=== PATIENT | female | born 1980 | race Caucasian/White ===

== ENCOUNTER → 2023-06-22 15:37 | Outpatient (CLI) | payer OTHER, SELFPAY ==
--- NOTE | ~2023-06-22 | XR_ITS ---
EXAMINATION: XR shoulder LT min 2V DATE: 06/22/2023 16:10 INDICATION: Unspecified osteoarthritis at the left shoulder with pain and limited range of motion TECHNIQUE: AP internally and externally rotated, AP oblique externally rotated and transscapular Y vi ews of the left shoulder were obtained. COMPARISON: None FINDINGS: Normal alignment. No fracture. Glenohumeral joint is normal. Acromioclavicular joint is normal. Soft tissues are unremarkable. Visualized portions of the left lung are clear. IMPRESSION: Negative left shoulder radiographs. Reviewed, dictated and finalized at location A.
== END ==
PROVIDERS: PCP Physical Medicine & Rehabilitation; Visit Provider Physical Medicine & Rehabilitation
DX: M19.012 Primary osteoarthritis, left shoulder (principal)
CPT/HCPCS: 73030

== ENCOUNTER 2023-07-21 14:15 | Observation (INO) | payer OTHER, SELFPAY ==
[2023-07-21] VITALS (11 sets, daily range): BP systolic 120–137; BP diastolic 75–103; PULSE 68–114; RESP 16–20; TEMP 36.6–36.8; O2SAT 94–100; BMI 36.8
--- NOTE | ~2023-07-21 | CT_ITS ---
EXAMINATION: CT abdomen pelvis wo con DATE: 07/21/2023 16:18 INDICATION: Right lower quadrant abdominal pain. Flank pain. TECHNIQUE: Computed tomography (CT) of the abdomen and pelvis was performed without intravenous contr ast. Iterative reconstruction technique was employed. The dose-length product was 1309.14 mGy-cm. COMPARISON: None FINDINGS: Lung bases are clear. Heart size is normal. No pericardial or pleural effusion. Gallbladder is not vi sualized and likely surgically absent. Liver, spleen, pancreas, bilateral adrenal glands and left kid ji are normal. There is moderate right hydronephrosis with perinephric stranding. There is a subtle tiny density at the transition point suspicious for an obstructing stone, either tiny or of relativel y low density no other evident urolithiasis in either kidney. Bladder is normal. The uterus is not id entified and has likely been surgically resected. There is some high attenuation material stranding o n either side of the expected location of the urethra, unclear with represent stones within urethral diverticulum or potentially injected material for treatment of incontinence. Bowels including the candy endix are normal. No free intraperitoneal gas or fluid. No pathologically enlarged abdominal or pelvi c lymphadenopathy. Very small fat-containing umbilical hernia. Mild lumbar levocurvature with mild sp ondylosis. IMPRESSION: 1. Moderate right hydronephrosis with tiny density at the transition point at the ureter pelvic junct ion which could represent either a tiny or low-density stone. Recommend follow-up to resolution and i f hydronephrosis persists consider further evaluation with either retrograde pyelogram or CT urogram for further evaluation. Reviewed, dictated and finalized at location A. IMPRESSION: 1. Moderate right hydronephrosis with tiny density at the transition point at t he ureter pelvic junction which could represent either a tiny or low-density st one. Recommend follow-up to resolution and if hydronephrosis persists consider further evaluation with either retrograde pyelogram or CT urogram for further e valuation.
--- NOTE | ~2023-07-21 | CT_ITS ---
EXAMINATION: CT abdomen pelvis w con INDICATION: Right UPJ obstruction, right flank pain TECHNIQUE: Computed tomographic images of the abdomen and pelvis were obtained after the administrati on of 100 cc of Omnipaque 350 intravenous contrast. The dose-length product (DLP) was 1741.56 mGy-cm. Automated exposure control and iterative reconstruction technique were employed. COMPARISON: Noncontrast CT from earlier today FINDINGS: The lung bases are clear. The heart size is normal. The liver, spleen, pancreas, and adrena l glands are normal. Changes of cholecystectomy are noted. There is stable moderate right hydronephro sis with perinephric stranding on the right. There is a 3 mm stone at the right ureteropelvic junctio n. The left kidney is unremarkable. No pathologically enlarged abdominal or pelvic lymph nodes are id entified. No free intraperitoneal gas or evidence of bowel obstruction. Again noted is high attenuati on material adjacent to the urethra with differential as previously described. There is mild lumbar s pondylosis. IMPRESSION: 1. 3 mm stone at the right ureteropelvic junction causing moderate right hydronephrosis. Reviewed, dictated and finalized at location F. IMPRESSION: 1. 3 mm stone at the right ureteropelvic junction causing moderate right hydron ephrosis.
--- NOTE | ~2023-07-21 | XR_ITS ---
EXAMINATION: XR abdomen/kub 1V INDICATION: Right flank pain TECHNIQUE: Supine views of the abdomen were obtained on 2 radiographs. COMPARISON: CT from today FINDINGS: No urolithiasis is identified. The bowel gas pattern is normal. The visualized osseous stru ctures are unremarkable. IMPRESSION: 1. No visible urolithiasis. Reviewed, dictated and finalized at location F. IMPRESSION: 1. No visible urolithiasis.
[2023-07-21 15:07] LABS: Basophils Absolute Auto 0.1 K/mm3 (0.0-0.1); Basophils Percent Auto 0.4 % (0.2-1.2); Eosinophils Absolute Auto 0.1 K/mm3 (0-0.3); Eosinophils Percent Auto 0.4 % (0-4.4); Hematocrit 41.2 % (37.0-47.0); Hemoglobin 13.6 g/dL (12.0-15.0); Immature Granulocyte Absolute 0.06 K/mm3 (0.00-0.031); Immature Granulocyte Percent A 0.4 % (0-0.5); Lymphocytes Absolute Auto 1.41 K/mm3 (0.9-3.2); Lymphocytes Percent Auto 10.5 % (18.3-44.2); Mean Corpuscular Hemoglobin 32.3 pg (26-34); Mean Corpuscular Volume 97.9 fl (80-100); Monocytes Absolute Auto 0.8 K/mm3 (0.1-0.6); Monocytes Percent Auto 5.7 % (2.6-8.5); Neutrophils Absolute Auto 11.1 K/mm3 (1.3-6.7); Neutrophils Percent Auto 82.6 % (45.5-73.1); Platelet Count Result 345 k/mm3 (150-375); Red Blood Count 4.21 M/mm3 (4.2-5.4); Red Cell Distribution Width 12.6 % (11.5-14.5); White Blood Count 13.4 K/mm3 (4.5-10.0)
[2023-07-21 15:08] LABS: Alanine Aminotransferase 20 U/L (6-35); Albumin Level 4.4 g/dL (3.5-5.1); Alkaline Phosphatase 86 U/L (38-126); Anion Gap 9 mmol/L (8-16); Aspartate Amino Transferase 22 U/L (14-36); Bilirubin,Total 0.7 mg/dL (0.2-1.3); Blood Urea Nitrogen 11 mg/dL (7-17); Calcium 9.7 mg/dL (8.4-10.2); Carbon Dioxide 20 mmol/L (22-30); Chloride 106 mmol/L (98-107); Estimated CRCL calculation 110 ml/min; Estimated Glomerular Filt Rate > 60; Glucose 98 mg/dL (65-110); Lipase 57 U/L (23-300); Sodium 135 mmol/L (137-145)
[2023-07-21 15:49] LABS: Appearance Urine Turbid (Clear); Bacteria Urine None Seen /hpf; Bilirubin Urine Negative (Negative); Blood Urine Negative (Negative); Color Urine Yellow (Yellow); Glucose Urine UA Negative (Negative); Ketones Urine Trace mg/dL (Negative); Leukocyte Esterase Ur Negative LEU/UL (Negative); Nitrate Urine Negative (Negative); Non Pathogenic Casts 0-2; Protein Urine Negative (Negative); Specific Grav Ur 1.016 (1.001-1.035); Squamous Epithelial Cell Urine Few /hpf (Few); WBC Urine 0-5 /hpf; pH Urine 8.5 (5.0-9.0)
[2023-07-21 15:56] LABS: Add Urine Microscopic? YES
[2023-07-21] MEDS: KETOROLAC 30 MG/ML VIAL (*BKC) IV PUSH (15:58)
[2023-07-21] MEDS: SODIUM CHLORIDE 0.9% IV 1,000 ML 999 ML IV CONT (15:59)
[2023-07-21] MEDS: HYDROcodone/acetaminophen (*CRX) 5-325 MG TABLET 1 TAB PO (17:51)
--- NOTE | 2023-07-21 18:04 | ED.GENADULT ---
HPI - General Adult General Chief complaint: Abdominal Pain Stated complaint: abdominal pain Time Seen by Provider: 07/21/23 15:25 Related Data Allergies Allergy/AdvReac Type Severity Reaction Status Date / Time No Known Allergies Allergy Verified 07/21/23 14:16 Course Course Emergency Course: Discharge was anticipated the patient was have recurring of pain. She was given IV morphine and developed a rash so she received Benadryl. Patient still having discomfort. Discussed case with urology, Dr. Connolly, recommends performing CT urogram and if contrast does not moving past the area identified is possible stone patient may need to be admitted for observation/pain control and potential stent. After imaging performed he was recontacted and the hospitalist has accepted the patient as well. Vital Signs Vital signs: Vital Signs Temperature 98.3 F 07/21/23 14:37 Pulse Rate 102 H 07/21/23 14:37 Respiratory Rate 16 07/21/23 14:37 Blood Pressure 122/97 H 07/21/23 14:37 Pulse Oximetry 100 07/21/23 14:37 Oxygen Delivery Room Air 07/21/23 14:37 Temperature 98.3 F 07/21/23 14:37 Pulse Rate 82 07/21/23 18:31 Respiratory Rate 16 07/21/23 18:31 Blood Pressure 137/95 H 07/21/23 18:31 Pulse Oximetry 98 07/21/23 18:52 Oxygen Delivery Room Air 07/21/23 14:37 Medical Decision Making Vital Signs Vital Signs: Vital Signs Temperature 98.3 F 07/21/23 14:37 Pulse Rate 102 H 07/21/23 14:37 Respiratory Rate 16 07/21/23 14:37 Blood Pressure 122/97 H 07/21/23 14:37 Pulse Oximetry 100 07/21/23 14:37 Oxygen Delivery Room Air 07/21/23 14:37 Temperature 98.3 F 07/21/23 14:37 Pulse Rate 82 07/21/23 18:31 Respiratory Rate 16 07/21/23 18:31 Blood Pressure 137/95 H 07/21/23 18:31 Pulse Oximetry 98 07/21/23 18:52 Oxygen Delivery Room Air 07/21/23 14:37 Lab Data 07/21/23 14:41 07/21/23 14:41 Labs: Lab Results 07/21/23 07/21/23 Range/Units 14:41 15:36 WBC 13.4 H (4.5-10.0) K/mm3 RBC 4.21 (4.2-5.4) M/mm3 Hgb 13.6 (12.0-15.0) g/dL Hct 41.2 (37.0-47.0) % MCV 97.9 (80-100) fl MCH 32.3 (26-34) pg MCHC 33.0 (32-36) g/dl RDW 12.6 (11.5-14.5) % Plt Count 345 (150-375) k/mm3 MPV 10.0 (7.4-10.4) fl Immature Gran % (Auto) 0.4 (0-0.5) % Neut % (Auto) 82.6 H (45.5-73.1) % Lymph % (Auto) 10.5 L (18.3-44.2) % [place] % (Auto) 5.7 (2.6-8.5) % Eos % (Auto) 0.4 (0-4.4) % Baso % (Auto) 0.4 (0.2-1.2) % Lymph # (Auto) 1.41 (0.9-3.2) K/mm3 [place] # (Auto) 0.8 H (0.1-0.6) K/mm3 Eos # (Auto) 0.1 (0-0.3) K/mm3 Baso # (Auto) 0.1 (0.0-0.1) K/mm3 Abs Immat Gran (auto) 0.06 H (0.00-0.031) K/mm3 Absolute Neuts (auto) 11.1 H (1.3-6.7) K/mm3 Absolute Nucleated RBC 0.0 (0.0-0.012) K/mm3 Nucleated RBC % 0.0 (0.0-0.2) % Sodium 135 L (137-145) mmol/L Potassium 4.0 (3.4-5.0) mmol/L Chloride 106 (98-107) mmol/L Carbon Dioxide 20 L (22-30) mmol/L Anion Gap 9 (8-16) mmol/L BUN 11 (7-17) mg/dL Creatinine 0.70 (0.7-1.0) mg/dL Estim Creat Clear Calc 110 ml/min Estimated GFR > 60 (59 - ) Glucose 98 (65-110) mg/dL Calcium 9.7 (8.4-10.2) mg/dL Total Bilirubin 0.7 (0.2-1.3) mg/dL AST 22 (14-36) U/L ALT 20 (6-35) U/L Alkaline Phosphatase 86 (38-126) U/L Total Protein 8.0 (6.3-8.2) g/dL Albumin 4.4 (3.5-5.1) g/dL Lipase 57 (23-300) U/L Urine Color Yellow (Yellow) Urine Appearance Turbid H (Clear) Urine pH 8.5 (5.0-9.0) Ur Specific [place] 1.016 (1.001-1.035) Urine Protein Negative (Negative) mg/dL Urine Glucose (UA) Negative (Negative) mg/dL Urine Ketones Trace H (Negative) mg/dL Ur Blood (Man) Negative (Negative) Urine Nitrate Negative (Negative) Urine Bilirubin Negative (Negative) Urine Urobilinogen 1.0 (<2.0) mg/dL Leukocyte Esterase Rfl Negative
[2023-07-21] MEDS: MORPHINE SULFATE (*CRX) 4 MG/ML INJ IV PUSH (18:41)
--- NOTE | 2023-07-21 18:48 | PC.NURSE ---
pt reports her pain was not improving and reports she now has a rash on her neck. Meds given for pain ERP notified of rash
[2023-07-21] MEDS: diphenhydrAMINE HCl INJ 50 MG/ML VIAL 25 MG IV PUSH (19:00)
[2023-07-21] MEDS: ONDANSETRON INJ 4 MG/2 ML VIAL IV PUSH (23:48)
[2023-07-21] MEDS: fentaNYL CITRATE INJ (*CRX) 100 MCG/2 ML VIAL 50 MCG IV PUSH (23:48)
[2023-07-21] MEDS: SODIUM CHLORIDE 0.9% IV 1,000 ML 125 ML IV CONT (23:49)
--- NOTE | 2023-07-22 00:33 | ADMGEN ---
This patient, Jennyfer Stratton, was admitted to [facility] Surg Room 321-01. Patient/family oriented to hospital policies and general routines including ID bracelet, bed and alarms, visiting hours, pain management, procedures, bathroom and other care routines, personal items, smoking policy, room service/diet, and visiting hours. Information on how to activate the Rapid Response Team has been discussed. Patient/Family are encouraged to report perceived risks to care and to ask questions if they do not understand what they are told or what they should do.
--- NOTE | 2023-07-22 04:12 | PM.IMHP ---
H&P: HPI History of Present Illness Date/Time: 07/22/23 04:12 Chief Complaint: Right flank pain Narrative: 43-year-old female with a past medical history of kidney stones, chronic pain, chronic constipation, migraines and long haul COVID who presented to the ER with sudden onset right-sided abdominal pain/flank pain. Patient reports that a few hours prior to coming to the ER she developed a dull aching right flank pain. Soon followed by a burning right lower quadrant abdominal pain. She reported that she reports that the or abdominal pain was a sharp and stabbing sensation. She does have a history of kidney stones but these symptoms were different than the symptoms she had in March with her 1st kidney stone. She passed her 1st kidney stone before coming to the ER at that time. She has not been having any dysuria or hematuria. She reports that she only occasionally drinks a glass of tea. She does not drink enough water on a daily basis. She does not drink soda. She is obese but reports that her weight is been relatively stable she may have gained a couple lb. However weight overall is lower than it was several years ago. She was suspected to have sleep apnea many years ago but she reports that she rarely snores now that she has lost weight. She has never had a sleep study. She denies any fevers or chills. She has had decreased appetite for couple of days but denies any vomiting. She has had some mild nausea for 2 days. She reports that she feels like her abdomen is distended. She reports chronic fatigue due to her POTS. Initial CT in the ER demonstrated moderate right hydronephrosis with tiny density the transition point of the UPJ which could represent tiny stone or low density stone. Recommended follow-up suggested. Repeat CT with pyelogram demonstrated 3 mm stone at the right UPJ junction causing right moderate hydronephrosis. Patient developed a rash in the ER after 1 dose of morphine. The rash was localized to her neck. Patient was subsequently admitted for pain control with fentanyl. Urology is consulted. Review of Systems Review of Systems: 12 systems were reviewed with pertinent positives and negatives per HPI. Except as documented in the HPI, all other systems were reviewed and are negative. [facility] Past Medical History Medical History (Updated 07/22/23 @ 04:23 by Zhanna Grossman DO) Anxiety Asthma Chronic back pain Neck and low back Chronic congestion of paranasal sinus Chronic constipation COVID-19 long hauler Pots Depression History of nephrolithiasis Menieres disease Migraine PTSD (post-traumatic stress disorder) Surgical History Surgical History (Updated 07/22/23 @ 07:47 by Zhanna Grossman DO) History of dilation and curettage History of hysterectomy (07/2016) Due to uterine infection caused by her D and C. 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 She has 2 adult children who are out on her own. She is . She drinks alcohol once every month or so. Code status: Full code Surrogate decision maker: Smoking status: Never smoker Alcohol intake: current Substance use: never Lack of Transportation: No Lack of Food: Never True Current Housing: I Have Housing Concerned About Future Housing: No Difficulty Paying Gas/Electric Bills: No Difficulty Paying for Meds: No Currently Unemployed: No Education: Associate Degree Difficulty w/ Childcare or Family Care: No Spiritual care concerns: No Meds Home Medications and Allergies Home Medications Medication Instructions Recorded C
[2023-07-22 06:00] VITALS: BP 125/78; PULSE 88; RESP 20; TEMP 36.2; O2SAT 100
[2023-07-22 06:59] LABS: Basophils Percent Auto 0.4 % (0.2-1.2); Eosinophils Absolute Auto 0.2 K/mm3 (0-0.3); Eosinophils Percent Auto 1.6 % (0-4.4); Hematocrit 36.6 % (37.0-47.0); Hemoglobin 11.7 g/dL (12.0-15.0); Immature Granulocyte Absolute 0.03 K/mm3 (0.00-0.031); Immature Granulocyte Percent A 0.3 % (0-0.5); Lymphocytes Absolute Auto 2.25 K/mm3 (0.9-3.2); Lymphocytes Percent Auto 23.7 % (18.3-44.2); Mean Corpuscular Hemoglobin 32.2 pg (26-34); Mean Corpuscular Volume 100.8 fl (80-100); Monocytes Absolute Auto 0.7 K/mm3 (0.1-0.6); Monocytes Percent Auto 7.8 % (2.6-8.5); Neutrophils Absolute Auto 6.3 K/mm3 (1.3-6.7); Neutrophils Percent Auto 66.2 % (45.5-73.1); Platelet Count Result 268 k/mm3 (150-375); Red Blood Count 3.63 M/mm3 (4.2-5.4); Red Cell Distribution Width 12.7 % (11.5-14.5); White Blood Count 9.5 K/mm3 (4.5-10.0)
[2023-07-22 07:15] LABS: Anion Gap 4 mmol/L (8-16); Blood Urea Nitrogen 8 mg/dL (7-17); Calcium 8.7 mg/dL (8.4-10.2); Carbon Dioxide 23 mmol/L (22-30); Chloride 110 mmol/L (98-107); Estimated CRCL calculation 129 ml/min; Estimated Glomerular Filt Rate > 60; Glucose 83 mg/dL (65-110); Potassium 3.3 mmol/L (3.4-5.0); Sodium 137 mmol/L (137-145)
[2023-07-22] MEDS: SODIUM CHLORIDE 0.9% IV 1,000 ML 125 ML IV CONT (08:49)
[2023-07-22] MEDS: POTASSIUM CHLORIDE 20 MEQ ER TABLET 40 MEQ PO (09:14)
[2023-07-22] MEDS: TOPIRAMATE 100 MG TABLET PO (09:15)
[2023-07-22] MEDS: buPROPion HCL XL (24 HR) 150 MG TABCR PO (09:15)
[2023-07-22] MEDS: polyethylene glycoL 3350 17 GM POWD.PACK PO (09:16)
--- NOTE | 2023-07-22 09:54 | WPDURCON ---
Assessment and Plan Assessment and plan (1) Hydronephrosis with obstructing calculus: Code(s): N13.2 - Hydronephrosis with renal and ureteral calculous obstruction Status: Acute Assessment and Plan: We reviewed her stone. She is currently feeling better. She can have regular diet and the IVF can be stopped. She can have Toradol and tamsulosin. If she tolerates diet without nausea or emesis, and has good pain control with the combination of Toradol and tamsulosin, she can have discharge home with planned urology follow up. She should strain the urine for stone passage. We discussed there is about a 90% chance of stone passage for a 3mm stone. If she develops nausea or emesis, or the pain cannot be controlled, she will need to be NPO after MN and she would need a stent tomorrow morning. She is in agreement with this plan. Urology Consult Note HPI Date Seen: 07/22/23 Requesting Physician: Zhanna Grossman DO Primary Care Provider: Zurdo Harmon, DO Consult Narrative Narrative: Jennyfer Stratton is a 43 year old female who presented to the emergency room with right flank pain. Initial CT scan showed hydronephrosis, but no clear obstructing stone. A CT urogram showed an obstructing 3mm right ureter stone. I reviewed the images. The stone is clearly seen on the CT urogram. It was not clearly seen on the initial non-contrast CT scan. She has not had fevers or chills. Her pain has improved this AM. No nausea or emesis. She has been NPO. Review of Systems Review of Systems: All systems reviewed & are unremarkable except as noted in HPI and below Musculoskeletal: Comments: right upper abdominal pain PMFSH Past Medical History Medical History (Updated 07/22/23 @ 04:23 by Zhanna Grossman DO) Anxiety Asthma Chronic back pain Neck and low back Chronic congestion of paranasal sinus Chronic constipation COVID-19 long hauler Pots Depression History of nephrolithiasis Menieres disease Migraine PTSD (post-traumatic stress disorder) Surgical History Surgical History (Updated 07/22/23 @ 07:47 by Zhanna Grossman DO) History of dilation and curettage History of hysterectomy (07/2016) Due to uterine infection caused by her D and C. 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 She has 2 adult children who are out on her own. She is . She drinks alcohol once every month or so. Code status: Full code Surrogate decision maker: Smoking status: Never smoker Alcohol intake: current Substance use: never Lack of Transportation: No Lack of Food: Never True Current Housing: I Have Housing Concerned About Future Housing: No Difficulty Paying Gas/Electric Bills: No Difficulty Paying for Meds: No Currently Unemployed: No Education: Associate Degree Difficulty w/ Childcare or Family Care: No Spiritual care concerns: No Meds Home Medications and Allergies Home Medications Medication Instructions Recorded Confirmed Type albuterol sulfate 90 mcg/actuation 2 puff inhalation PRN PRN Wheezing 07/21/23 07/22/23 History aerosol inhaler bupropion HCl 150 mg 24 hr tablet, 150 mg PO DAILY 07/21/23 07/22/23 History extended release cholecalciferol (vitamin D3) 50 50 mcg PO WEEKLY 07/21/23 07/22/23 History mcg (2,000 unit) tablet (Vitamin D3) gabapentin 300 mg capsule 300 mg PO PRN PRN Migraine Headache 07/21/23 07/22/23 History rimegepant 75 mg disintegrating 75 mg PO DAILY PRN Migraine 07/21/23 07/22/23 History tablet (Nurtec ODT) Headache topiramate 100 mg tablet 100 mg PO DAILY
--- NOTE | 2023-07-22 12:57 | PM.DS ---
DS: Admitting Diagnosis Discharge Date 07/22/2023 Admitting Diagnosis Hydronephrosis with obstructing calculus, sirs criteria without infection DS: Discharge Diagnosis Discharge Diagnosis (1) Hydronephrosis with obstructing calculus: Code(s): N13.2 - Hydronephrosis with renal and ureteral calculous obstruction Status: Acute DS: Summary Hospital Course Reason for hospitalization: This is a 43-year-old female patient admitted due to obstructing right ureteral stone 3 mm at the UPJ Hospital Course: This is a 43-year-old female patient who was admitted for obstructing ureteral stone confirmed by CT with IV contrast showing stable moderate right hydronephrosis with perinephric stranding and a 3 mm stone at the right UPJ. Patient received [place] in the emergency department then developed a rash with hives. She was subsequently given morphine as the [place] did not control her pain. This morning patient rated pain 5/10 receive some Tylenol it was seen by Urology who ordered ketorolac. Patient was able to tolerate diet without worsening pain, development of nausea or vomiting. Patient stated that she would prefer to discharge home and follow-up with Urology in the clinic. She was given a urine strainer and instructed to strain all urine and collect stone when it passes. Patient instructed on Tylenol and ibuprofen for pain. Return precautions discussed. She was agreeable with this plan. Discharge in stable condition. Status at Discharge Cognitive/behavioral status at discharge: Awake alert and oriented Functional status at discharge: independent ambulation Overall status at discharge: patient is progressing back to baseline Time Spent with Patient Time attestation: Total time spent providing and/or coordinating discharge services: 35 minutes Time spent: Greater than 30 minutes Exam Narrative: Weight 106.6 kg BMI 36.8 Const: Other: Obese, no acute distress, appears stated age, well groomed HENMT: Other: Mucous membranes are moist, no oral pharyngeal erythema Eyes: Other: Pupils are equal and reactive, no scleral icterus, no conjunctival pallor Neck: Other: Large neck circumference, no JVD, trachea midline Resp: Other: Clear to auscultation bilaterally, no increased work of breathing Cardio: Other: Regular rate, regular rhythm, 2+ bilateral radial and pedal pulses GI: Other: Slightly distended, soft, tenderness in the right upper quadrant, tenderness in the right lower quadrant, reproducible tenderness to percussion of the left lower back, normoactive bowel sounds Skin: Other: Generalized pallor, non jaundice Neuro: Other: Alert oriented, speech is clear, no facial asymmetry, no localizing neurologic deficits noted during the course of conversation Extrem: Other: No clubbing, cyanosis or edema Psych: Other: Normal mood and affect, pleasant and cooperative DS: Data Data Completed and Pending Completed studies during hospitalization: Abdominal x-ray, abdominal pelvis CT without contrast, abdominal pelvis CT with contrast Labs on day of discharge: Labs from last 24 hours 07/22/23 07/21/23 07/21/23 06:27 15:36 14:41 WBC 9.5 13.4 H RBC 3.63 L 4.21 Hgb 11.7 L 13.6 Hct 36.6 L 41.2 MCV 100.8 H 97.9 MCH 32.2 32.3 MCHC 32.0 33.0 RDW 12.7 12.6 Plt Count 268 345 MPV 10.0 10.0 Immature Gran % (Auto) 0.3 0.4 Neut % (Auto) 66.2 82.6 H Lymph % (Auto) 23.7 10.5 L [place] % (Auto) 7.8 5.7 Eos % (Auto) 1.6 0.4 Baso % (Auto) 0.4 0.4 Lymph # (Auto) 2.25 1.41 [place] # (Auto) 0.7 H 0.8 H Eos # (Auto) 0.2 0.1 Baso # (Auto) 0.0 0.1 Abs Immat Gran (auto) 0.03 0.06 H Absolute Neuts (auto) 6.3 11.1 H Absolute Nucleated RBC 0.0 0.0 Nucleated RBC % 0.0 0.0 Sodium 137 135 L Potassium 3.3 L 4.0 Chloride 110 H 106 Carbon Dioxide 23 20 L Anion Gap 4 L 9 BUN 8
[2023-07-22] MEDS: TAMSULOSIN HCL 0.4 MG CAPSULE PO (13:25)
[2023-07-22] MEDS: KETOROLAC 30 MG/ML VIAL (*BKC) IV PUSH (13:25)
== END 2023-07-22 15:30 | disposition home or self-care (01) ==
LOC: ANHED 21:34 → ANH3MEDSUR 07-22 01:52
PROVIDERS: Admitting Provider Internal Medicine; Emergency Provider Emergency Medicine; PCP Student in an Organized Health Care Education/Training Program; Visit Provider Internal Medicine
DX: N13.2 Hydronephrosis with renal and ureteral calculous obstruction (principal); K59.00 Constipation, unspecified; G43.909 Migraine, unspecified, not intractable, without status migrainosus; R53.82 Chronic fatigue, unspecified; J45.909 Unspecified asthma, uncomplicated; G90.A Postural orthostatic tachycardia syndrome [POTS]; U09.9 Post COVID-19 condition, unspecified; R05.9 Cough, unspecified; G89.29 Other chronic pain; M54.50 Low back pain, unspecified; M54.2 Cervicalgia; E66.9 Obesity, unspecified; Z68.38 Body mass index [BMI] 38.0-38.9, adult; F41.9 Anxiety disorder, unspecified; F32.A Depression, unspecified; Z87.442 Personal history of urinary calculi; Z79.1 Long term (current) use of non-steroidal anti-inflammatories (NSAID); Z79.51 Long term (current) use of inhaled steroids; Z79.899 Other long term (current) drug therapy
CPT/HCPCS: 36415; 74018; 74176; 74177; 74178; 80048; 80053; 81001; 83690; 85025; 96361; 96374; 99285; A9270; G0378; J1200; J1885; J2270; J2405; J3010; J7030; Q9967

== ENCOUNTER 2024-09-13 15:57 | Emergency (ER) | payer OTHER, SELFPAY ==
[2024-09-13 16:11] VITALS: BP 125/74; PULSE 95; RESP 18; TEMP 36.6; O2SAT 100
--- NOTE | 2024-09-13 16:11 | ED_ITS ---
HPI - Headache General Chief Complaint: Headache Stated Complaint: migraine/ nausea Time Seen by Provider: 09/13/24 16:11 Source: patient, RN notes reviewed and old records reviewed Mode of arrival: ambulatory Limitations: no limitations History of Present Illness HPI Narrative: Patient with history of migraines presents with complaints of intermittent headache for the past week. She denies any injury or trauma. She does report some associated neck pain, she is observed moving the neck about freely throughout history and exam. She denies any fever, chills, sweats. She does report a scratchy throat . She does state that she has tried many different medications, has tried Nurtec, tripped in medication, Advil, Tylenol. She reports that she has not taken any medications for couple of days. Rates pain 3/10 upon arrival. Does not appear to be in any distress. Denies any sinus congestion. Related Data Home Medications ?Medication ?Instructions ?Recorded ?Confirmed ?Last Taken ?Type albuterol sulfate 90 mcg/actuation 2 puff inhalation PRN PRN Wheezing 07/21/23 07/22/23 07/16/23 History aerosol inhaler bupropion HCl 150 mg 24 hr tablet, 150 mg PO DAILY 07/21/23 07/22/23 07/21/23 09:00 History extended release gabapentin 300 mg capsule 300 mg PO PRN PRN Migraine Headache 07/21/23 07/22/23 07/18/23 09:00 History rimegepant 75 mg disintegrating 75 mg PO DAILY PRN Migraine 07/21/23 07/22/23 07/18/23 History tablet (Nurtec ODT) Headache topiramate 100 mg tablet 100 mg PO DAILY 07/21/23 07/22/23 07/20/23 21:00 History benzonatate 100 mg capsule 100 mg PO TID PRN Cough 07/22/23 07/22/23 07/15/23 History polyethylene glycol 3350 17 17 g PO DAILY 07/22/23 07/22/23 07/19/23 09:00 History gram/dose oral powder (Miralax) levothyroxine 25 mcg tablet mcg 09/13/24 Unknown History Allergies Allergy/AdvReac Type Severity Reaction Status Date / Time hydrocodone (From [place]) Allergy Rash Verified 09/13/24 16:12 Review of Systems Review of Systems: All systems reviewed & are unremarkable except as noted in HPI and below Constitutional: Constitutional: Reports as per HPI, Reports no additional constitutional complaints and Reports headache(s) ENT: Reports system reviewed and no additional complaints, except as documented and Reports sore throat Cardiovascular: Cardiovascular: Reports no additional cardiovascular complaints Respiratory: Respiratory: Reports no additional respiratory complaints Gastrointestinal: Gastrointestinal: Reports no additional gastrointestinal complaints [facility] Past Medical History Medical History History of nephrolithiasis PTSD (post-traumatic stress disorder) Depression Anxiety Chronic congestion of paranasal sinus Menieres disease Chronic constipation Asthma Chronic back pain Neck and low back COVID-19 long hauler Pots Migraine Surgical History Surgical History History of hysterectomy (07/2016) Due to uterine infection caused by her D and C. 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 She has 2 adult children who are out on her own. She is . She drinks alcohol once every month or so. Code status: Full code Surrogate decision maker: Smoking status: Never smoker Alcohol intake: current Substance use: never Lack of Transportation: No Lack of Food: Never True Current Housing: I Have Housing Concerned About Future Housing: No Difficulty Paying Gas/Electric Bills: No Difficulty Paying for Meds: No Currently Unemployed: No Education: Associate Degree Difficulty w/ Childcare or Family Care: No Spiritual care concerns: No Comments At the time of my signature, I reviewed and agree with the nursing past medical, surgical, social, and family history. There is no relevant family history pertinent to the patient complaint. Exam Const: General: cooperative, no acute distress, alert and awake Orientation/consciousness: oriented to person, oriented to place and oriented to time HENMT: Head: normal to inspection, normocephalic and atraumatic Ears: TM's normal bilaterally Mouth: Yes moist mucous membranes Throat: posterior oropharynx abnormal erythema Resp: Effort & Inspection: normal respiratory effort and able to speak in complete sentences Auscultation: clear to auscultation bilaterally, no crackles, no rales, no rhonchi and no wheezes Cardio: Palpation: normal PMI Rate: regular rate Rhythm: regular rhythm Heart sounds: S1 normal heart sound present and S2 normal heart sound present Neuro: General: oriented to person, oriented to place and oriented to time Cranial nerves: Yes CN's II-XII intact bilaterally Psych: Appearance: grossly normal Thought process: Normal thought process present Insight: Good insight present (Psych) Judgement: Good judgement present (Psych) Course Course Level of Care: Express Care Visit Vital Signs Vital signs: Reviewed MDM - Headache MDM Narrative Medical decision making narrative: Patient with history of migraines has had intermittent headache for 1 week. She has taken 1 dose of Nurtec at onset of her symptoms. Has not repeated it. She has tried isyx-ahw-[id number] medications the following day, then did take sumatriptan 6 days ago. Took Advil 2 days ago. Has not taken any medication for her symptoms since. Is not in any distress on arrival. Negative strep. Culture pending. Patient advised to take medication as prescribed. Next Discharge instructions reviewed with patient, as well as provided in writing per nursing staff. The instructions also include specific and strict return/GO TO THE ER as well as f/u information. All questions have been answered, and the patient deny any further questions with discharge and discharge plan. Some parts of this dictation were generated by voice recognition software and may contain typographical and/or grammatical inaccuracies. Differential Diagnosis Differential diagnosis: Likely migraine, tension headache, headache, sinusitis and postconcussion syndrome Medical Records Attestation: I reviewed the patient's medical records. Lab Data Attestation: I reviewed the patient's lab results. Discharge Plan Discharge Clinical Impression: Headache Qualifiers: Headache type: unspecified Headache chronicity pattern: unspecified pattern Intractability: not intractable Qualified Code(s): R51.9 - Headache, unspecified Patient Disposition: Home, Self-Care Condition: Stable Instructions: Antibiotic Form, Acute Headache (ED) Additional Instructions: Stay well hydrated, avoid triggers. Take medications as prescribed. Follow with primary care provider. Emergency department for new or worse symptoms Patient Language: Bel[place]ian Prescriptions: No Action levothyroxine 25 mcg tablet gabapentin 300 mg capsule 300 mg PO PRN PRN (Reason: Migraine Headache) albuterol sulfate 90 mcg/actuation HFA aerosol inhaler 2 puff INHALATION PRN PRN (Reason: Wheezing) topiramate 100 mg tablet 100 mg PO DAILY bupropion HCl 150 mg tablet extended release 24 hr 150 mg PO DAILY Nurtec ODT 75 mg tablet,disintegrating 75 mg PO DAILY PRN (Reason: Migraine Headache) benzonatate 100 mg capsule 100 mg PO TID PRN (Reason: Cough) polyethylene glycol 3350 [Miralax] 17 gram/dose Powder 17 g PO DAILY Follow-up/Referrals: Faustino,DO Zurdo [Primary Care Provider] - 1 Week Stand Alone Forms: Work/School Release IP Time of Disposition: 16:38
[2024-09-13 16:55] LABS: EDSTREPNEGPOS1 Negative (Negative)
== END 2024-09-13 16:45 | disposition home or self-care (01) ==
PROVIDERS: Emergency Provider Nurse Practitioner Family; PCP Student in an Organized Health Care Education/Training Program
DX: R51.9 Headache, unspecified (principal); J45.909 Unspecified asthma, uncomplicated; F41.9 Anxiety disorder, unspecified; F32.A Depression, unspecified; Z86.16 Personal history of COVID-19
CPT/HCPCS: 87081; 87880; 99213; G0463

== ENCOUNTER 2025-07-22 18:25 | Emergency (ER) | payer SELFPAY ==
--- OUTSIDE RECORDS SUMMARY | 2025-07-21 11:00 | XMS_ITS | Encounter Summary ---
Author Organization [facility] Address [address] [place] [id number] Care Team Providers Care Line Analyst Name Role Phone Zurdo Harmon Ab LERMA Primary Care Provider + Reason for Visit * Reason Comments Nose Problem Patient presenting t o the office c/o multiple nose bleeds that started yesterday had 3 episodes since yesterday morning- patient said it was pouring out her nose and into the back of the throat took about 15 mins to stop- since the episode from this morning she has had a pretty bad headache - did use humidifier last night Encounter Details Date Type Department Care Team (Late st Contact Info) Description 07/21/2025 11:00 AM CDT Office Visit [facility] Family & Internal Medicine - [address] [phone] Maureen Nuñez FNP [address] [place] [address] [phone] Nose Problem (Patient presenting to the office c/o multiple nose bleeds that started yesterday had 3 episodes since yesterday morning- patient said it was pouring out her nose and into the back of the throat took about 15 mins to stop- since the episode from this morning she has had a pretty bad headache - did use humidifier last night ) Social History Tobacco Use Types Packs/Day Years Used Date Smoking Tobacco: Never Passive Smoke Exposure: Current Smokeless Tobacco: Never Comments:Tried it as a teen, wasnt a fan Alcohol Use Standard Drinks/Week Comments Not Currently 0 (1 standard drink = 0.6 oz pur e alcohol) rare PHQ-2 Answer Date Recorded Patient Health Questionnaire-2 Score 6 07/21/2025 Comments No Sex and Gender Information Value Date Recorded Sex Assigned at Female 09/23/2024 10:40 AM INSIDE SALES ACCOUNT REPRESENTATIVE Legal Sex Female 9:40 PM INSIDE SALES ACCOUNT REPRESENTATIVE Gender Identity Female 09/23/2024 10:40 AM INSIDE SALES ACCOUNT REPRESENTATIVE Sexual Orientation Not on file documented as of this encounter Last Filed Vital Signs Vital Sign Reading Time Taken Comments Blood Pressure 130/86 07/21/2025 11:23 AM CDT Pulse 103 07/21/2025 11:23 AM CDT Temperature 36.6 C (97.9 F) 07/21/2025 11:23 AM CDT Respiratory Rate 18 07/21/2025 11:2 3 AM CDT Oxygen Saturation 98% 07/21/2025 11: 23 AM CDT Inhaled Oxygen Concentration - - Weight 108.5 kg (239 lb 4.8 oz) 025 11:23 AM CDT Height 172.7 cm (5' 8) 07/21/2025 11:2 3 AM CDT Body Mass Index 36.39 07/21/2025 11:23 AM CDT documented in this encounter Functional Status * Over the past 2 weeks, how often have you been bothered by any of the following problems? Question Answer Date of Assessment Author Status Little interest or pleasure in doing things Nearly every day 07/21/2025 11:17 AM DONAVANT Nina Maciel MA Active Feeling down, depressed, or hopeless Nearly every day 07/21/2025 11:17 AM DONAVANT Nina Maciel MA Active Patient Health Questionnaire-2 Score 6 07/21/2025 11:17 AM CDT Nina Maciel MA Active * Question Answer Date of Assessment Author Status Trouble falling or staying asleep, or sleeping too much Nearly every day 07/21/2025 11:17 AM DONAVANT Nina Maciel MA Active Feeling tired or having little energy Several days 07/21/2025 11:17 AM DONAVANT Nina Maciel MA Active Poor appetite or overeating Nearly every day 07/21/2025 11:17 AM DONAVANT Nina Maciel MA Active Feeling bad about yourself - or that you are a failure or have let yourself or your family down Several days 07/21/2025 11:17 AM Nina Dewey MA Active Trouble concentrating on things, such as reading the newspaper or watching television More than half the days 07/21/2025 11:17 AM Nina Dewey MA Active Moving or speaking so slowly that other people could have noticed? Or the opposite - being so fidgety or restless that you have been moving around a lot more than usual. Not at all 07/21/2025 11:17 AM Nina Dewey MA Active Thoughts that you would be better off or hurting yourself in some way Not at all 07/21/2025 11:17 AM Nina Dewey MA Active Patient Health Questionnaire-9 Score 16 07/21/2025 11:17 AM Nina Dewey MA Active * If you checked off any problems on this questionnaire so far, Question Answer Date of Assessment Author Status How difficult have these problems made it for you to do your work, take care of things at home, or get along with other people? Somewhat difficult 07/21/2025 11:17 AM Nina Dewey MA Active documented as of this encounter Patient Instructions * Patient Instructions* KISHA García - 07/21/2025 11:00 AM CDT It is important that you use your nasal spray, as prescribed, and on a regular basis to prevent nasal symptoms Using [id number] nasal moisturizer as we discussed Hold your krill oil supplement for a week to see if this helps Do not aggravate or blow your nose, as this may cause more bleeding, by dislodging the clot that iskeeping your nose from bleeding Drink plenty of water to keep hydrated Call for any questions or concerns Follow-up with your primary care provider on Monday, as scheduled documented in this encounter Progress Notes * KISHA García - 07/21/2025 11:00 AM CDTSummary: nose bleeds Office Progress Note Reason for Visit: Nose Problem (Patient presenting to the office c/o multiple nose bleeds that started yesterday had 3 episodes since yesterday morning- patient said it was pouring out her nose and into the back of the throat took about 15 mins to stop- since the episode from this morning she has had a pretty bad headache - did use humidifier last night ) History of Present Illness: History of Present Illness The patient presents for evaluation of nosebleeds. She has been experiencing unusual nosebleeds since yesterday, which she describes as more severe than her typical episodes. The bleeding was so intense that it seemed as if a blood vessel had ruptured, causing blood to flow down her throat when she tilted her head back. Despite attempts to stop thebleeding with tissues, it persisted until she applied pressure to her nose for approximately 10 minutes. This resulted in the expulsion of a large blood clot when she blew her nose due to difficulty breathing. The bleeding resumed but eventually ceased, allowing her to continue her day without further incident. However, later that night, another episode occurred after she gently blew her nose. A s imilar incident happened this morning, which took longer to control and was accompanied by a headache. She reports no ear pain. She has a history of occasional nosebleeds due to dryness and allergies. She has been using a humidifier nightly for an extended period but notes that her nose became pulp drier firer than usual when she slept in the living room two nights ago. She also uses a neti pot when her nose is stuffy or when she is exposed to high levels of allergens, such as dust mites during cleaning. She has recently switched from a multivitamin to individual supplements, including krill oil, vitamin K, and vitamin K2. She uses Flonase a few times a week but not daily, as it causes a burning sensation in her nose. She also takes Zyrtec. She discontinued levothyroxine three weeks ago due to a persistent sore throat and phlegm production, which she believes were side effects of the medication. She discussed this with her previous doctor and was advised that levothyroxine should not cause these symptoms. Despite continuing the medication, her symptoms worsened, leading her to try hot tea and hot water with lemon for relief. She hasdiscontinued this medication and does have a f/u with her PCP this Monday, I advised her to keep this appt. Sleep: Uses a humidifier nightly ROS: Review of Systems All other systems reviewed and are negative. Medications: Current Outpatient Medications on File Prior to Visit Medication Sig albuterol sulfate HFA 108 (90 Base) MCG/ACT inhaler Inhale 2 puffs into the lungs every 6 (six) hours as needed for Wheezing. buPROPion XL (WELLBUTRIN XL) 300 MG 24 hr tablet Take 1 tablet (300 mg total) by mouth daily. gabapentin (NEURONTIN) 300 MG capsule TAKE 1 TO 2 CAPSULES BY MOUTH THREE TIMES DAILY DIRECTED Lpdlshlqk-Aqmyoguh-NW (BROMFED DM) 30-2-10 MG/5ML Syrup Take 10 mLs by mouth every 6 (six) hours asneeded. rizatriptan (MAXALT) 10 MG tablet Take 1 tablet (10 mg total) by mouth as needed for Migraine. May repeat in 2 hours if needed topiramate (TOPAMAX) 100 MG tablet Take 1 tablet (100 mg total) by mouth daily. No current facility-administered medications on file prior to visit. Allergies: Review of patient's allergies indicates: Allergen Reactions Hydrocodone Rash Medical History: Past Medical History[1] Surgical History: Past Surgical History[2] Social History: Social History[3] Family History: Family History[4] PE: Physical Exam Vitals and nursing note reviewed. Constitutional: General: She is not in acute distress. Appearance: Normal appearance. She is well-developed and well-groomed. She is not ill-appearing, toxic-appearing or diaphoretic. HENT: Head: Normocephalic and atraumatic. Jaw: There is normal jaw occlusion. Right Ear: Hearing, tympanic membrane, ear canal and external ear normal. Left Ear: Hearing, tympanic membrane, ear canal and external ear normal. Nose: Mucosal edema present. No laceration. Right Turbinates: Enlarged and swollen. Left Turbinates: Enlarged and swollen. Mouth/Throat: Mouth: Mucous membranes are moist. Pharynx: Oropharynx is clear. Eyes: General: Lids are normal. Vision grossly intact. Gaze aligned appropriately. Extraocular Movements: Extraocular movements intact. Conjunctiva/sclera: Conjunctivae normal. Neck: Thyroid: No thyroid mass, thyromegaly or thyroid tenderness. Trachea: Trachea and phonation normal. Cardiovascular: Rate and Rhythm: Normal rate and regular rhythm. Heart sounds: Normal heart sounds. Pulmonary: Effort: Pulmonary effort is normal. No tachypnea, bradypnea, accessory muscle usage, prolonged expiration, respiratory distress or retractions. Breath sounds: Normal breath sounds and air entry. No stridor, decreased air movement or transmitted upper airway sounds. No decreased breath sounds, wheezing, rhonchi or rales. Abdominal: General: Abdomen is flat. Musculoskeletal: Cervical back: Full passive range of motion without pain, normal range of motion and neck supple. No edema, erythema, signs of trauma, rigidity, torticollis or crepitus. No pain with movement, spinous process tenderness or muscular tenderness. Normal range of motion. Right lower leg: No edema. Left lower leg: No edema. Lymphadenopathy: Cervical: No cervical adenopathy. Skin: General: Skin is warm and dry. Capillary Refill: Capillary refill takes less than 2 seconds. Findings: No rash. Neurological: Mental Status: She is alert and oriented to person, place, and time. Cranial Nerves: No cranial nerve deficit. Sensory: Sensation is intact. No sensory deficit. Motor: Motor function is intact. Coordination: Coordination is intact. Coordination normal. Gait: Gait is intact. Gait normal. Psychiatric: Attention and Perception: Attention and perception normal. Mood and Affect: Mood and affect normal. Speech: Speech normal. Behavior: Behavior normal. Behavior is cooperative. Thought Content: Thought content normal. Cognition and Memory: Cognition and memory normal. Judgment: Judgment normal. Filed Vitals: 07/21/25 1123 BP: 130/86 Pulse: (!) 103 Resp: 18 Temp: 97.9 ??F (36.6 ??C) TempSrc: Skin SpO2: 98% Weight: 108.5 kg (239 lb 4.8 oz) Height: 1.727 m (5' 8) Physical Exam Nose: Nasal passages are inflamed and swollen. Results Diagnoses/Impression: 1. Frequent nosebleeds azelastine (ASTELIN) 0.1 % nasal spray 2. Allergic rhinitis, unspecified seasonality, unspecified trigger azelastine (ASTELIN) 0.1 % nasalspray Recommendations and Plan: 1. Frequent nosebleeds - azelastine (ASTELIN) 0.1 % nasal spray; 1 spray by Nasal route 2 (two) times daily. Use in each nostril as directed Dispense: 30 mL; Refill: 3 2. Allergic rhinitis, unspecified seasonality, unspecified trigger - azelastine (ASTELIN) 0.1 % nasal spray; 1 spray by Nasal route 2 (two) times daily. Use in each nostril as directed Dispense: 30 mL; Refill: 3 Orders Placed This Encounter azelastine (ASTELIN) 0.1 % nasal spray Cannot display discharge medications since this is not an admission. Assessment & Plan 1. Epistaxis: - The nasal passages exhibit inflammation and swelling, indicative of nasal allergies, which could potentially lead to epistaxis. The headache is likely a result of blood loss/nose bleed. - Adequate hydration was advised, and forceful nose blowing should be avoided for the next 24 hoursto facilitate healing. - Astelin was prescribed, to be administered twice daily with one spray in each nostril for a minimum of 10 days. Ayris nasal gel was recommended for additional lubrication between Astelin applications. - The use of the neti pot was discouraged during this period. Krill oil should be temporarily discontinued for a few days due to its potential blood-thinning effects. If the epistaxis persists, she is to inform us immediately. 2. Postnasal drainage: - The postnasal drainage may be contributing to the sore throat and constant phlegm. - Astelin was prescribed to be used twice daily for at least 10 days to help alleviate these symptoms. 3. hypothyroidism - She was advised to discuss the levothyroxine with her doctor during her upcoming appointment on Monday, as it might be necessary to switch to a different thyroid medication. This document was created in part by using voice recognition software and was reviewed by the author. If errors are present, please bring them to your provider's attention. PCP: KISHA YOUNG 07/21/2025 [1] Past Medical History: Diagnosis Date Adjustment reaction with anxiety and depression 03/24/2021 Related to grief and trauma, interfering with work performance. Previous trial of Zoloft and BuSpar in her teens which was not effective and caused side effects. Completed intensive outpatient therapy program through [facility], now established with telehealth therapist. Initially tried sertraline (improvement in mood initially but the Anxiety Arthritis 2008 Shoulder Asthma (HHS/HCC) 1987 Clotting disorder (HHS/HCC) Blood does not clot well for the past two years. Depression Folate deficiency 07/05/2022 Hydronephrosis with obstructing calculus 05/03/2024 Long COVID Low serum vitamin D 07/05/2022 Last Assessment & Plan: Last vitamin d was 7. Received 1 month supply of vitamin d 50,000 units, but never started a maintenance dose. - start vitamin d - 2000 unit daily - serum vitamin d Migraine Nasal obstruction 05/05/2021 Nephrolithiasis Patulous eustachian tube, bilateral 05/05/2021 POTS (postural orthostatic tachycardia syndrome) Ureterolithiasis 05/03/2024 [2] Past Surgical History: Procedure Laterality Date CHOLECYSTECTOMY 2017 COLONOSCOPY N/A 07/31/2024 Colonoscopy with polypectomy performed by Denys Antonio MD at [facility] OR DILATION/CURETTAGE,DIAGNOSTIC 2016 HYSTERECTOMY 2016 LASER ABLATION CONDYLOMA CERVICAL / VULVAR 08/2022 [3] Social History Socioeconomic History Marital status: Tobacco Use Smoking status: Never Passive exposure: Current Smokeless tobacco: Never Tobacco comments: Tried it as a teen, wasnt a fan Vaping Use Vaping status: Never Used Substance and Sexual Activity Alcohol use: Not Currently Comment: rare Drug use: Not Currently Types: Marijuana Comment: has not used in over a year as of 07/21/2025 Sexual activity: Yes Partners: Male control/protection: None Social Drivers of Health Financial Resource Strain: Not on File (08/29/2022) Received from [facility] Financial Resource Strain Financial Resource Strain: 0 Food Insecurity: Not on File (06/20/2024) Received from [facility] Food Insecurity Food: 0 Transportation Needs: Not on File (08/29/2022) Received from [facility] Transportation Needs Transportation: 0 Physical Activity: Not on File (08/29/2022) Received from [facility] Physical Activity Physical Activity: 0 Stress: Not on File (08/29/2022) Received from [facility] Stress Stress: 0 Social Connections: Not on File (06/07/2024) Received from [facility] Social Connections Connectedness: 0 Housing Stability: Not on File (08/29/2022) Received from [facility] Housing Stability Housin [4] Family History Problem Relation Name Age of Onset Cancer Mother Ailin Unknown stage 4 cancer, possibly GI related Hypertension Mother Ailin Arthritis Mother Ailin Early Mother Ailin Stroke due to cancer Miscarriages / Stillbirths Mother Ailin Stroke Mother Ailin Diabetes Father Issa Glaucoma Father Issa Asthma Maternal Grandmother [place] Dementia Maternal Grandmother [place] Cancer Paternal Grandmother Mirta Ovarian cancer Diabetes Paternal Grandfather Renan Cancer Paternal Grandfather Renan Lung cancer documented in this encounter Plan of Treatment Upcoming Encounters Date Type Department Care Team (Late st Contact Info) Description 07/25/2025 2:40 PM CDT Office Visit [facility] Family & Internal Medicine [address] [phone] Zurdo Harmon DO [address] [place] [address] documented as of this encounter Visit Diagnoses Diagnosis Frequent nosebleeds- Primary Allergic rhinitis, unspecified seasonality, unspecified trigger documented in this encounter Additional Health Concerns Assessment Noted Time PHQ-9 Depression Total Score: 16 025 11:17 AM CDT documented as of this encounter Care Teams Line Analyst Relationship Specialty Start Date End Date Zurdo Harmon DO [address] [place] [id number] PCP - General FAMILY PRACTICE 02/16/23 documented as of this encounter
[2025-07-22 18:23] VITALS: BP 159/105; PULSE 108; RESP 16; TEMP 36.9; O2SAT 100
--- NOTE | 2025-07-22 19:14 | ED.EPISTAXIS ---
HPI - Epistaxis General Chief complaint: Epistaxis Stated complaint: Nosebleed x 2D intermitten Time Seen by Provider: 07/22/25 19:02 Source: patient and family Mode of arrival: EMS Limitations: no limitations History of Present Illness HPI Narrative: This is a 45-year-old female with history of unspecified autoimmune disorder who presents to the ED for epistaxis. Patient states that for the past couple days, she has been having intermittent epistaxis to her right Lopez. She argument with her nephew today and began to also have epistaxis to her left Lopez as well. Was apparently bleeding rather profusely and was not stopping with pressure so EMS was notified. She was given TXA intranasally bilaterally and clamp was placed. She has not looked since that. Related Data Home Medications ?Medication ?Instructions ?Recorded ?Confirmed ?Last Taken ?Type albuterol sulfate 90 mcg/actuation 2 puff inhalation PRN PRN Wheezing 07/21/23 07/22/23 07/16/23 History aerosol inhaler bupropion HCl 150 mg 24 hr tablet, 150 mg PO DAILY 07/21/23 07/22/23 07/21/23 09:00 History extended release gabapentin 300 mg capsule 300 mg PO PRN PRN Migraine Headache 07/21/23 07/22/23 07/18/23 09:00 History rimegepant 75 mg disintegrating 75 mg PO DAILY PRN Migraine 07/21/23 07/22/23 07/18/23 History tablet (Nurtec ODT) Headache topiramate 100 mg tablet 100 mg PO DAILY 07/21/23 07/22/23 07/20/23 21:00 History benzonatate 100 mg capsule 100 mg PO TID PRN Cough 07/22/23 07/22/23 07/15/23 History polyethylene glycol 3350 17 17 g PO DAILY 07/22/23 07/22/23 07/19/23 09:00 History gram/dose oral powder (Miralax) levothyroxine 25 mcg tablet mcg 09/13/24 Unknown History Allergies Allergy/AdvReac Type Severity Reaction Status Date / Time hydrocodone (From [place]) Allergy Rash Verified 09/13/24 16:12 Review of Systems Review of Systems: Gen.: Denies fevers or chills Eyes: Denies eye pain or visual change ENT: Denies congestion Respiratory: Denies shortness of breath or cough CV: Denies chest pain or palpitations GI: Denies abdominal pain nausea, emesis or diarrhea denies burning, urgency, frequency or hematuria Musculoskeletal: Denies back pain or muscle pain Neuro: Denies numbness, tingling, weakness or focal weakness Skin: Denies rash Except as documented, all other systems reviewed and negative [facility] Past Medical History Medical History History of nephrolithiasis PTSD (post-traumatic stress disorder) Depression Anxiety Chronic congestion of paranasal sinus Menieres disease Chronic constipation Asthma Chronic back pain Neck and low back COVID-19 long hauler Pots Migraine Surgical History Surgical History History of hysterectomy (07/2016) Due to uterine infection caused by her D and C. 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 She has 2 adult children who are out on her own. She is . She drinks alcohol once every month or so. Code status: Full code Surrogate decision maker: Smoking status: Never smoker Alcohol intake: current Substance use: never Lack of Transportation: No Lack of Food: Never True Current Housing: I Have Housing Concerned About Future Housing: No Difficulty Paying Gas/Electric Bills: No Difficulty Paying for Meds: No Currently Unemployed: No Education: Associate Degree Difficulty w/ Childcare or Family Care: No Spiritual care concerns: No Exam Narrative: APPEARANCE: No acute distress, nontoxic, resting in bed HEENT: Normocephalic, atraumatic. Clot identified in the posterior right nostril, minimal oozing identified. No bleeding to the left nostril RESPIRATORY: No respiratory distress CARDIOVASCULAR: Appears well perfused ABDOMINAL: Nondistended MUSCULOSKELETAl: Moves all extremities. No obvious deformities NEURO: Awake and alert. SKIN:: Warm, dry. No rashes lesions or abrasions PSYCHIATRIC: Normal affect/mood, Course Vital Signs Vital signs: Vital Signs Temperature 98.5 F 07/22/25 18:23 Pulse Rate 108 H 07/22/25 18:23 Respiratory Rate 16 07/22/25 18:23 Blood Pressure 159/105 H 07/22/25 18:23 Pulse Oximetry 100 07/22/25 18:23 Oxygen Delivery Room Air 07/22/25 18:23 Temperature 98.5 F 07/22/25 18:23 Pulse Rate 106 H 07/22/25 20:45 Respiratory Rate 20 07/22/25 20:45 Blood Pressure 138/86 07/22/25 20:45 Pulse Oximetry 100 07/22/25 20:45 Oxygen Delivery Room Air 07/22/25 18:23 MDM - Epistaxis MDM Narrative Medical decision making narrative: 45-year-old female Presenting for epistaxis. On initial evaluation patient was in no acute distress afebrile, hemodynamic stable. Differentials include but are not limited to: fracture, anterior epistaxis, posterior epistaxis, mass Notable exam findings: clot noted in the right posterior nostril, small amount of oozing noted. No active bleeding in the left nostril on further discussion with the patient she had been given TXA by EMS, however, he was just sprayed in and was not soaked on the nostrils. Because of this, I did decide to apply TXA topically with temporary gauze packing. On reevaluation, bleeding was controlled. Patient was deemed appropriate for discharge at this time. Patient had a prescription for as a listing spray at home which I further educated her on.Patient was advised follow-up with their PCP in the next week for re-evaluation. Patient was agreeable to this plan. Given strict return precautions. Medical Records Attestation: I reviewed the patient's medical records. Discharge Plan Discharge Clinical Impression: Epistaxis Patient Disposition: Home Condition: Stable Instructions: Antibiotic Form Additional Instructions: Use nasal saline spray as needed. Apply Vaseline to the nostrils to keep things moist. Follow-up with your PCP on Monday as scheduled. Return to the ED for any new or worsening symptoms. Patient Language: St Helen[place] Prescriptions: No Action levothyroxine 25 mcg tablet gabapentin 300 mg capsule 300 mg PO PRN PRN (Reason: Migraine Headache) albuterol sulfate 90 mcg/actuation HFA aerosol inhaler 2 puff INHALATION PRN PRN (Reason: Wheezing) topiramate 100 mg tablet 100 mg PO DAILY bupropion HCl 150 mg tablet extended release 24 hr 150 mg PO DAILY Nurtec ODT 75 mg tablet,disintegrating 75 mg PO DAILY PRN (Reason: Migraine Headache) benzonatate 100 mg capsule 100 mg PO TID PRN (Reason: Cough) polyethylene glycol 3350 [Miralax] 17 gram/dose Powder 17 g PO DAILY Follow-up/Referrals: Faustino,DO Zurdo [Primary Care Provider]
--- OUTSIDE RECORDS SUMMARY | 2025-07-22 19:22 | XMS_ITS | Encounter Summary ---
Author Organization [facility] Address [address] [place] [address] Care Team Providers Care Drain Tile Press Operator Name Role Phone Unavailable Primary Care Provider Unavailabl e Encounter Details Date Type Department Care Team (Late st Contact Info) Description 03/27/2023 External ED [facility] [address] [place] [address] External, Provider [address] [place] [id number] Social History Tobacco Use Types Packs/Day Years Used Date Smoking Tobacco: Never Smokeless Tobacco: Never Alcohol Use Standard Drinks/Week Comments Yes 0 (1 standard drink = 0.6 oz pur e alcohol) drinks twice per year Social Connections Answer Date Recorded Social Connections and Isolation 0 08/29/2022 Financial Resource Strain Answer Date R ecorded Financial Resource Strain 0 2021 Stress Answer Date Recorded Stress 0 08/29/2022 Physical Activity Answer Date Recorded Physical Activity 0 08/29/2022 Food Insecurity Answer Date Recorded Food 0 08/29/2022 Transportation Needs Answer Date Record ed Transportation 0 08/29/2022 Housing Stability Answer Date Recorded Housing 0 08/29/2022 Safety and Environment Answer Date Andrzej rded Safety 0 08/29/2022 Utilities Answer Date Recorded Utilities 0 08/29/2022 Employment Answer Date Recorded Employment 0 08/29/2022 Comments Unknown Sex and Gender Information Value Date Recorded Sex Assigned at Not on file Legal Sex Female 3:15 PM PST Gender Identity Not on file Sexual Orientation Not on file documented as of this encounter Plan of Treatment Not on file documented as of this encounter Visit Diagnoses Diagnosis Unspecified abdominal pain documented in this encounter
--- OUTSIDE RECORDS SUMMARY | 2025-07-22 19:22 | XMS_ITS | Encounter Summary ---
Author Organization [facility] Address [address] [place] [id number] Care Team Providers Care Metalizer Field Operation Name Role Phone Zurdo Harmon DO Primary Care Provider + Encounter Details Date Type Department Care Team (Late Contact Info) Description 06/16/2023 AGLOGICt Message Enc [facility] [address] [phone] [facility] Provider test results Social History Tobacco Use Types Packs/Day Years Used Date Smoking Tobacco: Former Cigarettes Passive Smoke Exposure: Current Smokeless Tobacco: Never Alcohol Use Standard Drinks/Week Comments Not Currently 0 (1 standard drink = 0.6 oz pur e alcohol) rare PHQ-2 Answer Date Recorded Patient Health Questionnaire-2 Score 1 02/16/2023 Comments No Sex and Gender Information Value Date Recorded Sex Assigned at Female 09/23/2024 10:40 AM TRUMPET TEACHER Legal Sex Female 9:40 PM TRUMPET TEACHER Gender Identity Female 09/23/2024 10:40 AM TRUMPET TEACHER Sexual Orientation Not on file documented as of this encounter Plan of Treatment Upcoming Encounters Date Type Department Care Team (Late Contact Info) Description 07/25/2025 2:40 PM CDT Office Visit [facility] [address] [phone] Zurdo Harmon DO [address] [place] [id number] documented as of this encounter Visit Diagnoses Not on filedocumented in this encounter Additional Health Concerns Infection Onset Date Last Indicated Resolved Time COVID-19 Rule Out 06/07/2024 06/07/2024 06/07/2024 11:23 AM CDT documented as of this encounter Care Teams Metalizer Field Operation Relationship Specialty Start Date End Date Zurdo Harmon DO [address] [place] [id number] PCP - General FAMILY PRACTICE 02/16/23 documented as of this encounter
--- OUTSIDE RECORDS SUMMARY | 2025-07-22 19:22 | XMS_ITS | Encounter Summary ---
Author Organization [facility] Address [address] [place] [address] Care Team Providers Care Machining Manager Name Role Phone Zurdo Harmon DO Primary Care Provider + Encounter Details Date Type Department Care Team (Late st Contact Info) Description 09/22/2023 SchoolChaptershart Message Enc [facility] [address] [phone] Zurdo Harmon DO [address] [place], [place] [phone] Medication Social History Tobacco Use Types Packs/Day Years [...] Sex Assigned at Female 09/23/2024 10:40 AM CAR SERVICER Legal Sex Female 9:40 PM CAR SERVICER Gender Identity Female 09/23/2024 10:40 AM CAR SERVICER Sexual Orientation Not on file documented as of this encounter Plan of Treatment Upcoming Encounters Date Type Department Care Team (Late st Contact Info) Description 07/25/2025 2:40 PM CDT Office Visit [facility] [address] [phone] Zurdo Harmon DO [address] [place], [place] [phone] documented as of this encounter Visit Diagnoses Not on filedocumented in this encounter Additional Health Concerns Infection Onset Date Last Indicated Resolved Time COVID-19 Rule Out 06/07/2024 06/07/2024 06/07/2024 11:23 AM CDT documented as of this encounter Care Teams Machining Manager Relationship Specialty Start Date End Date Zurdo Harmon DO [address] [place] [id number] PCP - General FAMILY PRACTICE 02/16/23 documented as of this encounter
--- OUTSIDE RECORDS SUMMARY | 2025-07-22 19:22 | XMS_ITS | Clinical Summary ---
Author Organization [facility] Address [address] [place] [address] Care Team Providers Care Oracle Sql Developer Name Role Phone Unavailable Primary Care Provider Unavailabl e Source Comments PLEASE NOTE, if this patient is a minor, it may be UNLAWFUL to discuss sensitive information that is contained in these records (such as FAMILY PLANNING, MENTAL HEALTH or SUBSTANCE ABUSE) with the minor patient's parent or other person without the patient's specific authorization.[facility] Allergies No known active allergies Medications buPROPion SR (WELLBUTRIN SR) 150 mg 12 hr tablet Take 150 mg by mouth 2 (two) times daily Active topiramate (TOPAMAX) 100 mg tablet Take 100 mg by mouth 2 (two) times daily Active SUMAtriptan succinate (IMITREX) 100 mg tablet Take by mouth once daily as needed for migraine Active gabapentin (NEURONTIN) 100 mg capsule Take 100 mg by mouth 3 (three) times daily Active Active Problems No known active problems Family History Medical History Relation Name Comments Diabetes Father high iop Father Hypertension Mother Diabetes Paternal Grandfather Lung Cancer Paternal Grandfather Cataracts Paternal Grandmother Glaucoma Paternal Grandmother Ovarian cancer Paternal Grandmother Relation Name Status Comments Father Mother Paternal Grandfather Paternal Grandmother Social History Tobacco Use Types Packs/Day Years Used Date Smoking Tobacco: Never Smokeless Tobacco: Never Tobacco Cessation:Counseling Given: Not Answered Alcohol Use Standard Drinks/Week Comments Yes 0 (1 standard drink = 0.6 oz pur e alcohol) drinks twice per year Social Connections Answer Date Recorded Connectedness 0 06/07/2024 Financial Resource Strain Answer Date R ecorded Financial Resource Strain 0 2021 Stress Answer Date Recorded Stress 0 08/29/2022 Physical Activity Answer Date Recorded Physical Activity 0 08/29/2022 Food Insecurity Answer Date Recorded Food 0 06/20/2024 Transportation Needs Answer Date Record ed Transportation 0 08/29/2022 Housing Stability Answer Date Recorded Housing 0 08/29/2022 Safety and Environment Answer Date Andrzej rded Safety 0 08/29/2022 Utilities Answer Date Recorded Utilities 0 08/29/2022 Employment Answer Date Recorded Stress 0 06/07/2024 Comments Unknown Sex and Gender Information Value Date Recorded Sex Assigned at Not on file Legal Sex Female 3:15 PM PST Gender Identity Not on file Sexual Orientation Not on file Plan of Treatment Health Maintenance Due Date Last Done Comments Anxiety Screening 1980 Diabetes Screening 1980 HPV Screening (self-collect) 1980 HPV Screening 1980 Lipid Screening 1980 Pap + HPV 1980 Tobacco Screening 1980 Relationship Safety Screening/Counseling 01/05/1995 Hypertension Screening (#1) 01/05/1998 Imm-Hepatitis B (1 of 3 - 19 + 3-dose series) 01/05/1999 Cervical Cancer Screening 01/05/2001 Pap Smear 01/05/2001 Imm-HPV (1 - 3-dose SCDM series) 01/05/2007 Imm-DTaP/Tdap/Td (2 - Td or Tdap) 10/02/2018 009 Syphilis Screening 09/26/2020 Breast Cancer Screening (Mammogram) 07/25/202407/25 Alcohol and Drug Screen 09/25/2024 Depression Annual Screen 09/25/2024 CT Colonography 01/05/2025 Colonoscopy 01/05/2025 Colorectal Cancer Screening 01/05/2025 FIT/gFOBT 01/05/2025 Fecal DNA 01/05/2025 Flexible Sigmoidoscopy 01/05/2025 [id number] ( season) 05/26/202504/19/2 021, 03/29/2021 Imm-Influenza (#1) 2025 HIV Screening Completed 07/25/2022 Hepatitis C Screening Completed 07/25/2022 Cervical Ablation/Cold-Knife Conization Discontinued Cervical Cryotherapy Discontinued Colposcopy Discontinued Excision/Leep Discontinued HPV Genotyping Discontinued Vaginal Pap Discontinued Vulvoscopy Discontinued Insurance [employer] Member Subscriber Plan / Payer (Ef fective 2018-Present) Name:Jennyfer Stratton Relation to Subscriber:Self Name:Jennyfer Stratton Payer ID:[id number] ([facility]) Type:Indemnity Address: [facility] [id number] [place] [address] [employer]AN (VSP)
--- OUTSIDE RECORDS SUMMARY | 2025-07-22 19:22 | XMS_ITS | Encounter Summary ---
Author Organization [facility] Address [address] [place] [address] Care Team Providers Care Hospital Staff Pharmacist Name Role Phone Zurdo Harmon Primary Care Provider + Encounter Details Date Type Department Care Team (Latest Contact Info) Description 07/21/2025 Travel Social History Tobacco Use Types Packs/Day Years [...] Sex Assigned at Female 09/23/2024 10:40 AM REIMBURSEMENT LIAISON Legal Sex Female 9:40 PM REIMBURSEMENT LIAISON Gender Identity Female 09/23/2024 10:40 AM REIMBURSEMENT LIAISON Sexual Orientation Not on file documented as of this encounter Functional Status * Over the past 2 weeks, how often have you been bothered by any of the following problems? Question Answer Date of Assessment Author Status Little interest or pleasure in doing things Nearly every day 07/21/2025 11:17 AM Nina Dewey MA Active Feeling down, depressed, or hopeless Nearly every day 07/21/2025 11:17 AM Nina Dewey MA Active Patient Health Questionnaire-2 Score 6 07/21/2025 11:17 AM Nina Dewey MA Active * Question Answer Date of Assessment Author Status Trouble falling or staying asleep, or sleeping too much Nearly every day 07/21/2025 11:17 AM Nina Dewey MA Active Feeling tired or having little energy Several days 07/21/2025 11:17 AM Nina Dewey MA Active Poor appetite or overeating Nearly every day 07/21/2025 11:17 AM Nina Dewey MA Active Feeling bad about yourself - [...] MA Active documented as of this encounter Plan of Treatment Upcoming Encounters Date Type Department Care Team (Late st Contact Info) Description 07/25/2025 2:40 PM CDT Office Visit [facility] Family [facility] Internal Medicine - [address] [phone] Zurdo Harmon DO [address] [place] [phone] documented as of this encounter Visit Diagnoses Not on filedocumented in this encounter Additional Health Concerns Assessment Noted Time PHQ-9 Depression Total Score: 16 025 11:17 AM CDT documented as of this encounter Care Teams Hospital Staff Pharmacist Relationship Specialty Start Date End Date Zurdo Harmon DO [address] [place] [id number] PCP - General FAMILY PRACTICE 02/16/23 documented as of this encounter
--- OUTSIDE RECORDS SUMMARY | 2025-07-22 19:22 | XMS_ITS | Encounter Summary ---
Author Organization [facility] Address [address] [place] [address] Care Team Providers Care Equity Research Analyst Name Role Phone Zurdo Harmon Primary Care Provider + Encounter Details Date Type Department Care Team (Late Contact Info) Description 05/27/2024 Torqeedot Message Enc [facility] [address] [facility], [address] [place] [phone] Penny Linn MD [address] [place] [address] Appointment reschedule Social History Tobacco Use Types Packs/Day Years Used Date Smoking Tobacco: Never Passive Smoke Exposure: Current Smokeless Tobacco: Never Comments:Tried it as a teen, wasnt a fan Alcohol Use Standard Drinks/Week Comments Not Currently 0 (1 standard drink = 0.6 oz pur e alcohol) rare PHQ-2 Answer Date Recorded Patient Health Questionnaire-2 Score 0 05/23/2024 Comments No Sex and Gender Information Value Date Recorded Sex Assigned at Female 09/23/2024 10:40 AM APPLICATIONS SYSTEMS ANALYST Legal Sex Female 9:40 PM APPLICATIONS SYSTEMS ANALYST Gender Identity Female 09/23/2024 10:40 AM APPLICATIONS SYSTEMS ANALYST Sexual Orientation Not on file documented as of this encounter Plan of Treatment Upcoming Encounters Date Type Department Care Team (Late Contact Info) Description 07/25/2025 2:40 PM CDT Office Visit [facility] Medical [facility] Family [facility] Internal Medicine [address] [phone] Zurdo Harmon DO [address] [place] [address] documented as of this encounter Visit Diagnoses Not on filedocumented in this encounter Additional Health Concerns Infection Onset Date Last Indicated Resolved Time COVID-19 Rule Out 06/07/2024 06/07/2024 06/07/2024 11:23 AM CDT Assessment Noted Time PHQ-9 Depression Total Score: 0 05/23/20 11:09 AM CDT documented as of this encounter Care Teams Equity Research Analyst Relationship Specialty Start Date End Date Zurdo Harmon DO [facility] [place] [address] PCP - General FAMILY PRACTICE 02/16/23 documented as of this encounter
--- OUTSIDE RECORDS SUMMARY | 2025-07-22 19:22 | XMS_ITS | Clinical Summary ---
Author Organization [facility] Address [address] [place] [address] Care Team Providers Care Social And Human Services Assistant Name Role Phone Zurdo Harmon Primary Care Provider + Allergies Active Allergy Reactions Criticality Noted Date Comments Hydrocodone Rash Low 07/22/2023 Medications albuterol sulfate HFA 108 (90 Base) MCG/ACT inhalerIndication s:Mild intermittent asthma without complication (HHS/HCC) Inhale 2 puffs into the lungs every 6 (six) hours as needed for Wheezing. 18 g 2 023 Active Pseudoeph-Bromphe n-DM (BROMFED DM) 30-2-10 MG/5ML SyrupIndications: Upper respiratory tract infection, unspecified type Take 10 mLs by mouth every 6 (six) hours as needed. 840 mL 024 Active rizatriptan (MAXALT) 10 MG tabletIndications :Chronic migraine without aura without status migrainosus, not intractable Take 1 tablet (10 mg total) by mouth as needed for Migraine. May repeat in 2 hours if needed 12 tablet 2 025 Active gabapentin (NEURONTIN) 300 MG capsuleIndication s:Chronic neck pain TAKE 1 TO 2 CAPSULES BY MOUTH THREE TIMES DAILY DIRECTED 180 capsule 1 025 Active buPROPion XL (WELLBUTRIN XL) 300 MG 24 hr tabletIndications :Severe recurrent major depression without psychotic features (CMS/HCC HHS/HCC) Take 1 tablet (300 mg total) by mouth daily. 90 tablet 025 2024 Active topiramate (TOPAMAX) 100 MG tabletIndications :Chronic migraine without aura without status migrainosus, not intractable Take 1 tablet (100 mg total) by mouth daily. 30 tablet Active azelastine (ASTELIN) 0.1 % nasal sprayIndications: Frequent nosebleeds,Allerg ic rhinitis, unspecified seasonality, unspecified trigger 1 spray by Nasal route 2 (two) times daily. Use in each nostril as directed 30 mL 3 Active rimegepant (NURTEC) 75 MG disintegrating tabletIndications :Intractable chronic migraine without aura and without status migrainosus Take 1 tablet (75 mg total) by mouth daily as needed for Migraine. Max of 1 tablet (75 mg) in 24 hours. 30 tablet 1 023 2024 Discontinued( Pt. elected to discontinue med) predniSONE (DELTASONE) 20 MG tabletIndications :Dysphonia Take 3 tablets for three days, then take 2 tablets for three days, then take 1 tablet for three days 18 tablet 024 2024 Discontinued( Therapy completed) cefdinir (OMNICEF) 300 MG Cap capsuleIndication s:Dysphonia Take 1 capsule (300 mg total) by mouth 2 (two) times daily. 20 capsule 024 2024 Discontinued( Therapy completed) levothyroxine (SYNTHROID) 25 MCG tabletIndications :Other fatigue Take 1 tablet (25 mcg total) by mouth every morning. 12/26/24: Please call office to schedule follow up appointment 60 tablet 2024 Discontinued( Side effects) topiramate (TOPAMAX) 50 MG TabIndications:Ch ronic migraine without aura without status migrainosus, not intractable TAKE 1 TABLET(50 MG) BY MOUTH TWICE DAILY 60 tablet 025 2024 Discontinued( Reorder) topiramate (TOPAMAX) 50 MG TabIndications:Ch ronic migraine without aura without status migrainosus, not intractable Take 1 tablet (50 mg total) by mouth 2 (two) times daily. 60 tablet 025 2024 Discontinued( Dose adjustment) Active Problems Problem Noted Date Diagnosed Date Positive FIT (fecal immunochemical test) Hematochezia 05/23/2024 Chronic constipation 08/18/2023 Kidney stone 03/27/2023 Vitamin B12 deficiency 07/05/2022 COVID-19 long hauler 04/11/2022 Overview (02/16/2023): Last Assessment & Plan: Symptoms include: brain fog, fatigue, dizziness, fever, headaches, lingering cough, raspiness, tremors and stuttering speech since november-2019 that hasn't improved with therapy. She is currently seeing a neurologist, therapist, PT, speech therapist. - [facility] Chronic insomnia 07/14/2021 Chronic tension-type headache, not intractable 0 06/04/2021 Overview (02/16/2023): Last Assessment & Plan: Longstanding but seemed significantly worse on sertraline. Will continue to monitor to see if improves to baseline now that she is off this medication. -also referring to PT to address chronic neck pain and possible contribution to headaches -if headaches not improving w PT and off sertraline, would consider referral to Neurology for further evaluation Chronic neck pain 06/04/2021 Overview (02/16/2023): Longstanding, patient reports history bulging disc, mild scoliosis, arthritis. Has worked with [facility] without significant benefit in the past. Likely significant contributor to chronic tension headaches Last Assessment & Plan: Refer to PT Allergic rhinitis 05/05/2021 Severe recurrent major depre ssion without psychotic features 04/09/2021 Seasonal allergies 04/07/2021 COVID-19 determined by clinical diagnostic crite demetria 04/07/2021 Overview (06/20/2023): Clinical COVID diagnosis in 11/2019 Mild intermittent asthma 03/16/2020 Migraines 06/20/2018 Overview (02/16/2023): Longstanding history but significant worsening of symptoms around April 2021. Started on venlafaxine for with ENT with some benefit, then added topiramate. Uses sumatriptan as needed but not fully effective at 25mg dose. Doing headache diary. Has appt with neuro scheduled early 2021. Patient notes worsening of symptoms occurred after second dose of covid vaccine. -trial increase dose of sumatriptan -complete titration of topiramate then follow up with ENT Resolved Problems Problem Noted Date Diagnosed Date Resolved Date Ureterolithiasis 05/03/2024 05/03/2024 Hydronephrosis with obstructing calculus 05/03/2024 05/03/2024 Folate deficiency 07/05/2022 02/16/2023 Low serum vitamin D 07/05/2022 02/17/20 23 Overview (02/16/2023): Last Assessment & Plan: Last vitamin d was 7. Received 1 month supply of vitamin d 50,000 units, but never started a maintenance dose. - start vitamin d - 2000 unit daily - serum vitamin d Mass of left breast 07/05/2022 02/17/20 23 Patulous eustachian tube, bilateral 05/05/2021 02/16/2023 Nasal obstruction 05/05/2021 02/16/2023 Adjustment reaction with anx iety and depression 03/24/2021 02/16/2023 Overview (02/16/2023): Related to grief and trauma, interfering with work performance. Previous trial of Zoloft and BuSpar in her teens which was not effective and caused side effects. Completed intensive outpatient therapy program through [facility], now established with telehealth therapist. Initially tried sertraline (improvement in mood initially but then stopped helping and worsening headaches), switched to buproprion which has good benefit. Brief trial of adding venlafaxine for possible benefit with headaches but was not very helpful Last Assessment & Plan: Feels wellbutrin is the most helpful. Lots of these symptoms now seem to be secondary to frustration with physical symptoms of headaches and cognitive changes. Encounters Date Type Department Care Team Description 07/21/2025 11:00 AM CDT Office Visit [facility] Family & Internal Medicine [address] [phone] Savannah MaureenKISHA diaz Nose Problem (Patient presenting to the office c/o multiple nose bleeds that started yesterday had 3 episodes since yesterday morning- patient said it was pouring out her nose and into the back of the throat took about 15 mins to stop- since the episode from this morning she has had a pretty bad headache - did use humidifier last night ) 07/21/2025 Travel from Last 3 Months Immunizations Immunization Administration Dates Next Due PFIZER COVID-19 (ORIGINAL FO RMULATION, PURPLE CAP) mRNA, LNP-S, PF, 30 MCG/0.3 ML DOSE 03/29/2021 Tdap (Generic) 10/02/2008 Family History Medical History Relation Comments Diabetes Father Glaucoma Father Asthma Maternal Grandmother Dementia Maternal Grandmother Arthritis Mother Cancer Mother Unknown stage 4 cancer, possibly GI related Early Mother Stroke due to ca ncer Hypertension Mother Miscarriages / Stillbirths Mother Stroke Mother Cancer Paternal Grandfather Lung cancer Diabetes Paternal Grandfather Cancer Paternal Grandmother Ovarian can cer Relation Status Comments Father Maternal Grandmother Mother (Age 64) Paternal Grandfather Paternal Grandmother Social History Tobacco Use Types Packs/Day Years Used Date Smoking Tobacco: Never Passive Smoke Exposure: Current Smokeless Tobacco: Never Tobacco Cessation:Counseling Given: No Comments:Tried it as a teen, wasnt a fan Alcohol Use Standard Drinks/Week Comments Not Currently 0 (1 standard drink = 0.6 oz pur e alcohol) rare PHQ-2 Answer Date Recorded Patient Health Questionnaire-2 Score 6 07/21/2025 Comments No Sex and Gender Information Value Date Recorded Sex Assigned at Female 09/23/2024 10:40 AM PUBLIC HEALTH PHYSICIAN Legal Sex Female 9:40 PM PUBLIC HEALTH PHYSICIAN Gender Identity Female 09/23/2024 10:40 AM PUBLIC HEALTH PHYSICIAN Sexual Orientation Not on file Last Filed Vital Signs Vital Sign Reading [...] Mass Index 36.39 07/21/2025 11:23 AM CDT Plan of Treatment Upcoming Encounters Date Type Department Care Team (Late st Contact Info) Description 07/25/2025 2:40 PM CDT Office Visit [facility] Family & Internal Medicine - [address] [phone] Zurdo Harmon DO [address] [place] [address] [id number] Health Maintenance Due Date Last Done Comments Annual Physical 01/05/1983 Hepatitis B Vaccines (1 of 3 - 19+ 3-dose series) 01/05/1999 COVID-19 Vaccine (2 - 2024-2 6 season) 2025 03/29/2021 Postponed from 05/26 (Future Appointment) Influenza Adult (#1) 2025 Postpon ed from 06/25/2025 (Future Appointment) Mammogram Screening 07/25/2025 07/25/2022, 07/25/2022 Postponed from 07/25/2024 (Future Appointment) HPV Vaccines (1 - 3-dose SCD M series) 08/21/2025 Postponed from 01/05 (Future Appointment) Pneumococcal Vaccine: Pediatrics (0 to 5 Years) and At-Risk Patients (6 to 49 Years) (1 of 2 - PCV) 08/21/2025 Postponed from (Future Appointment) DTaP, Tdap and Td Vaccines ( 2 - Td or Tdap) 09/09/2025 10/02/2008 Postponed from 10/02 (Future Appointment) Colorectal Cancer Screening Colonoscopy (10 Years) 07/31/2034 07/31/2024 Hepatitis C Completed 07/25/2022, 07/25/2022 PHQ-2 (Physician [place]) Completed 07/21/2025 Hepatitis A Vaccines Aged Out No long er eligible based on patient's age to complete this topic Meningococcal B Vaccine Aged Out No l onger eligible based on patient's age to complete this topic Meningococcal Vaccine Aged Out No oenl vanessa eligible based on patient's age to complete this topic RSV Immunizations Under 20 Months Aged Out No longer eligible b ased on patient's age to complete this topic Procedures Procedure Name Priority Date/Time Associated Diagnosis Comments MAMMOGRAM GENERIC (SCAN ORDER) Routine 07/25/2022 from Last 3 Months or Most Recently Relevant to Health Maintenance Results * MAMMOGRAM (07/25/2022) Anatomical Region Laterality Modality Other us Doc Med Group Scanned SCANNING Final Resu lt from Last 3 Months or Most Recently Relevant to Health Maintenance Insurance GENERIC - COMMERCIAL , [address] [place] [address] Care Teams Social And Human Services Assistant Relationship Specialty Start Date End Date Zurdo Harmon DO [address] [place] [id number] PCP - General FAMILY PRACTICE 02/16/23
--- OUTSIDE RECORDS SUMMARY | 2025-07-22 19:22 | XMS_ITS | Encounter Summary ---
Author Organization [facility] Address [address] [place] [address] Care Team Providers Care Client Support Professional Name Role Phone Zurdo Harmon DO Primary Care Provider + Encounter Details Date Type Department Care Team (Late st Contact Info) Description 06/12/2023 MyChart Message Enc [facility] Family & Internal Medicine [id number] [place] [address] Zurdo Harmon DO [facility] [place], [place] [phone] ADA form for work Social History Tobacco Use Types Packs/Day Years [...] Sex Assigned at Female 09/23/2024 10:40 AM SUPERVISOR 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 documented in this encounter Plan of Treatment Upcoming Encounters Date Type Department Care Team (Late st Contact Info) Description 07/25/2025 2:40 PM CDT Office Visit [facility] Family & Internal Medicine - [phone] [place] [address] Zurdo Harmon DO [address] [place] [address] documented as of this encounter Visit Diagnoses Not on filedocumented in this encounter Additional Health Concerns Infection Onset Date Last Indicated Resolved Time COVID-19 Rule Out 06/07/2024 06/07/2024 06/07/2024 11:23 AM CDT documented as of this encounter Care Teams Client Support Professional Relationship Specialty Start Date End Date Zurdo Harmon DO [address] [place] [address] PCP - General FAMILY PRACTICE 02/16/23 documented as of this encounter
--- OUTSIDE RECORDS SUMMARY | 2025-07-22 19:22 | XMS_ITS | Encounter Summary ---
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 Legal Sex Female 9:40 PM SPRAY DRIER OPERATOR HELPER Gender Identity Female 09/23/2024 10:40 AM SPRAY DRIER OPERATOR HELPER Sexual Orientation Not on file documented as of this encounter Plan of Treatment Upcoming Encounters Date Type Department Care Team (Late st Contact Info) Description 07/25/2025 2:40 PM CDT Office Visit [facility] Medical [facility] Family & Internal Medicine [address] [phone] Zurdo Harmon DO [address] [place] [phone] documented as of this encounter Visit Diagnoses Not on filedocumented in this encounter Additional Health Concerns Infection Onset Date Last Indicated Resolved Time COVID-19 Rule Out 06/07/2024 06/07/2024 06/07/2024 11:23 AM CDT documented as of this encounter Care Teams Systems Auditor Relationship Specialty Start Date End Date Zurdo Harmon DO [facility] [place] [address] PCP - General FAMILY PRACTICE 02/16/23 documented as of this encounter
--- OUTSIDE RECORDS SUMMARY | 2025-07-22 19:22 | XMS_ITS | Clinical Summary ---
Author Organization [facility] Address [address] [place] [address] Care Team Providers Care Glazing Machine Operator Name Role Phone Unavailable Primary Care Provider Unavailabl e Source Comments [facility],non-owned Affiliates and Associated Physician Practices is amultiple site organization consisting of ambulatory clinics and hospital sitesin [place], [place], [place] and [place]. This disclosure is being madepursuant to the Care Everywhere program and may not contain all information available regarding this patient. Last updated 18.[facility] [employer] Social History Tobacco Use Types Packs/Day Years Used Date Smoking Tobacco: Never Assessed Comments Unknown Sex and Gender Information Value Date Recorded Sex Assigned at Not on file Legal Sex Female 9:10 AM CDT Gender Identity Not on file Sexual Orientation Not on file Plan of Treatment Health Maintenance Due Date Last Done Comments COLOGUARD (AGES 45-75) - COL ON CA SCREENING 1980 COLON MONITORING 1980 COLONOSCOPY - COLON CA SCREENING 1980 CT COLONOGRAPHY - COLON CA SCREENING 1980 Colorectal Cancer Screening 1980 FIT - COLON CA SCREENING 1980 FLEX SIG - COLON CA SCREENING 1980 LIPID TESTING 1980 MAMMOGRAM 1980 HIV SCREENING 01/05/1995 HEPATITIS C SCREENING 01/01/1998 DTAP/TDAP/TD VACCINES (1 - Tdap) 01/05/1999 HEPATITIS B VACCINE (1 of 3 - 19+ 3-dose series) 01/05/1999 PAP SMEAR 01/05/2001 HPV VACCINE (1 - 3-dose SCDM series) 01/05/2007 DEPRESSION SCREENING 09/25/2024 MEDICARE AWV CALENDAR YEAR 2024 COVID-19 VACCINE (2 - 2024-2 6 season) 2025 03/29/2021 INFLUENZA VACCINE (#1) 2025 ZOSTER VACCINE (1 of 2) 01/05/2030 HIB VACCINE Aged Out No longer eligi ble based on patient's age to complete this topic MENINGOCOCCAL (Group B) VACC INE SHARED DECISION-MAKING Aged Out No longer eligibl e based on patient's age to complete this topic MENINGOCOCCAL GROUPS A/C/Y/W VACCINE Aged Out No longer eligible b ased on patient's age to complete this topic PNEUMOCOCCAL VACCINE Aged Out No long er eligible based on patient's age to complete this topic Insurance [employer] MEDICARE ADV
--- OUTSIDE RECORDS SUMMARY | 2025-07-22 19:22 | XMS_ITS | Encounter Summary ---
Author Organization [facility] Address [address] [place] [address] Care Team Providers Care Supplier Development Manager Name Role Phone Unavailable Primary Care Provider Unavailabl e Encounter Details Date Type Department Care Team (Late st Contact Info) Description 07/21/2023 External ED [facility] [address] [place] [address] External, Provider [address] test [place] [id number] Social History Tobacco Use Types Packs/Day Years [...] as of this encounter Visit Diagnoses Diagnosis Calculus of ureter documented in this encounter
--- OUTSIDE RECORDS SUMMARY | 2025-07-22 19:22 | XMS_ITS | Encounter Summary ---
Author Organization [facility] Address [address] [place] [address] Care Team Providers Care Bushler Name Role Phone Zurdo Harmon DO Primary Care Provider + Encounter Details Date Type Department Care Team (Late Contact Info) Description 03/22/2023 MyChart Message Enc [facility] [address] [place], [place] [address] [employer], [facility] Provider Air Quality Message Social History Tobacco Use Types Packs/Day Years [...] Sex Assigned at Female 09/23/2024 10:40 AM SAFETY RELIEF VALVE TECHNICIAN Legal Sex Female 9:40 PM SAFETY RELIEF VALVE TECHNICIAN Gender Identity Female 09/23/2024 10:40 AM SAFETY RELIEF VALVE TECHNICIAN Sexual Orientation Not on file documented as of this encounter Plan of Treatment Upcoming Encounters Date Type Department Care Team (Late Contact Info) Description 07/25/2025 2:40 PM CDT Office Visit [facility] Family & Internal Medicine [address] [phone] Zurdo Harmon DO [address] [place] [address] documented as of this encounter Visit Diagnoses Not on filedocumented in this encounter Additional Health Concerns Infection Onset Date Last Indicated Resolved Time COVID-19 Rule Out 06/06/2023 06/06/2023 06/06/2023 3:42 PM CDT COVID-19 Rule Out 06/06/2023 06/06/2023 06/07/2023 5:20 PM CDT COVID-19 Rule Out 06/07/2024 06/07/2024 06/07/2024 11:23 AM CDT documented as of this encounter Care Teams Bushler Relationship Specialty Start Date End Date Zurdo Harmon DO [address] [place] [id number] PCP - General FAMILY PRACTICE 02/16/23 documented as of this encounter
[2025-07-22] MEDS: TRANEXAMIC ACID 1,000 MG/10 ML AMPUL 1000 MG TOPICAL (19:45)
[2025-07-22 20:45] VITALS: BP 138/86; PULSE 106; RESP 20; O2SAT 100
== END 2025-07-22 20:25 | disposition home or self-care (01) ==
PROVIDERS: Emergency Provider Student in an Organized Health Care Education/Training Program; PCP Student in an Organized Health Care Education/Training Program
DX: R04.0 Epistaxis (principal); D89.89 Other specified disorders involving the immune mechanism, not elsewhere classified; J45.909 Unspecified asthma, uncomplicated; H81.09 Meniere's disease, unspecified ear; F43.10 Post-traumatic stress disorder, unspecified; F41.9 Anxiety disorder, unspecified; F32.A Depression, unspecified; Z87.442 Personal history of urinary calculi; Z90.710 Acquired absence of both cervix and uterus; Z90.49 Acquired absence of other specified parts of digestive tract; Z79.899 Other long term (current) drug therapy
CPT/HCPCS: 30901; 99283; J3290